=== PATIENT | male | born 1975 | race Caucasian/White ===

== ENCOUNTER 2019-09-04 09:27 | Emergency (ER) | payer OTHER ==
[~2019-09-04] VITALS: Ht 170.2 cm; Wt 79.0 kg
[2019-09-04 09:29] VITALS: BP 121/74
[2019-09-04] MEDS ORDERED: SULF1TAB49 PO (09:53)
== END 2019-09-04 10:04 | disposition home or self-care (01) ==
LOC: ER 09:28
DX: L02.01 Cutaneous abscess of face (principal); Z88.0 Allergy status to penicillin
CPT/HCPCS: 99283